=== PATIENT | female | born 1985 | race Caucasian/White ===

== ENCOUNTER 2017-01-15 21:13 | Emergency (ER) | payer MEDICAID ==
[~2017-01-15] VITALS: Wt 75.5 kg
[~2017-01-15 21:13] MED LIST: CEPH-443 PO; IBUP-1542 PO
[2017-01-15 23:35] LABS: URINE BLOOD (Dip) POC Trace-intact (NEGATIVE)
[2017-01-16 00:04] LABS: ADD UMIC YES; UR ASCORBIC ACID NEGATIVE (NEGATIVE); UR BILIRUBIN (Dip) NEGATIVE (NEGATIVE); UR BLOOD (Dip) 1+ mg/dL (NEGATIVE); UR CLARITY CLEAR (CLEAR); UR COLOR YELLOW (YELLOW); UR GLUCOSE (Dip) NEGATIVE (NEGATIVE); UR KETONES (Dip) NEGATIVE (NEGATIVE); UR LEUKOCYTE ESTERASE (Dip) TRACE Leu/ul (NEGATIVE); UR NITRITE (Dip) NEGATIVE (NEGATIVE); UR RBC 0 /HPF (0-5); UR SPECIFIC GRAVITY (Dip) 1.006 (1.003-1.030); UR SQUAMOUS EPITHELIAL CELL FEW /HPF (FEW); UR TOTAL PROTEIN (Dip) NEGATIVE (NEGATIVE); UR UROBILINOGEN (Dip) NEGATIVE (NEGATIVE)
[2017-01-16 00:52] LABS: BASOPHILS % 0.2 % (0.0-2.0); EOSINOPHILS # 0.1 10^3/ul (0.0-0.5); EOSINOPHILS % 0.9 % (0.0-7.0); HEMATOCRIT 38.4 % (37.0-47.0); HEMOGLOBIN 12.8 g/dl (12.0-16.0); LYMPHOCYTES # 2.1 10^3/ul (0.8-2.9); LYMPHOCYTES % 24.6 % (15.0-51.0); MEAN CORPUSCULAR HEMOGLOBIN 30.2 pg (29.0-33.0); MEAN CORPUSCULAR HGB CONC 33.3 g/dl (32.0-37.0); MEAN CORPUSCULAR VOLUME 90.6 fl (82.0-101.0); MEAN PLATELET VOLUME 10.6 fl (7.4-10.4); MONOCYTE # 0.6 10^3/ul (0.3-0.9); MONOCYTES % 6.5 % (0.0-11.0); NEUTROPHILS % 67.4 % (39.0-77.0); PLATELET COUNT 219 10^3/UL (140-415); RED BLOOD COUNT 4.24 10^6/ul (4.20-5.40); RED CELL DISTRIBUTION WIDTH 13.3 % (11.5-14.5); WHITE BLOOD COUNT 8.5 10^3/ul (4.8-10.8)
--- NOTE | 2017-01-16 02:11 | RADRPT ---
PROCEDURE: US OB. CLINICAL INDICATION: , bilateral pelvic pain. TECHNIQUE: Multiple sonographic images of the pelvis were obtained. Transabdominal and transvagin al views of the pelvis are available for review. The images were reviewed on a PACS workstation. COMPARISON: No prior studies are available for comparison. FINDINGS: There is an intrauterine gestational sac, but no pole is identified. The mean gestational sac diameter measures 0.74 cm, corresponding to a 9-suvo-1-day . No subchorionic hemorrhage is identified. The right ovary measures 3.2 x 1.7 x 2.3 cm. The left ovary measures 3.7 x 2.1 x 2.5 cm. Blood flow is demonstrated to both ovaries. The adnexa are unremarkable. There is no free fluid. IMPRESSION: 1. There is a 0-mmuw-7-day intrauterine gestational sac, but no pole is identified. This cou ld simply relate to early dates, and continued follow-up is recommended. RPTAT: HTAR .Zion Hutchison MD, MD Date Time Electronically viewed and signed by .Zion Hutchison MD, on 01/16/2017 02:11 .R/
[2017-01-16] MEDS ORDERED: ACET500C5 PO (02:26)
[2017-01-16] MEDS ORDERED: CEPH-443 PO (02:26)
--- NOTE | 2017-01-16 02:36 | ERD ---
ER Documentation Chief Complaint Date/Time DATE: 01/16/17 TIME: 02:32 Chief Complaint Dysuria and ?? weeks. HPI 31-year-old female patient with no significant past medical history presents to the ED complaining of dysuria for 1 week. States that she could also be . States her last menses was on November 18, 2016. Denies any vaginal bleeding, vaginal discharge. Reports that she does have some bilateral lower pelvic pain. Denies any nausea, vomiting, diarrhea, constipation, melena, hematemesis. States that she is a . ROS All systems reviewed and are negative except as per history of present illness. Medications Home Meds Active Scripts Acetaminophen* (Tylophen*) 500 Mg Capsule, 1 CAP PO Q6H Y for PAIN AND OR ELEVATED TEMP, #20 CAP Prov:MELVIN CASTRO PA-C 01/16/17 Cephalexin* (Keflex*) 500 Mg Capsule, 500 MG PO QID for 7 Days, CAP Prov:MELVIN CASTRO PA-C 01/16/17 Cephalexin* (Keflex*) 500 Mg Capsule, 500 MG PO QID for 10 Days, CAP Prov:JON GAY 09/23/15 Ibuprofen* (Motrin*) 600 Mg Tab, 600 MG PO Q6, #20 TAB Prov:UMER GAYTHIA 09/23/15 Allergies Allergies: Coded Allergies: No Known Allergies (Verified Allergy, Mild, 09/23/15) PMhx/Soc History of Surgery: No Anesthesia Reaction: No Hx Neurological Disorder: No Hx Respiratory Disorders: No Hx Cardiac Disorders: No Hx Psychiatric Problems: No Hx Miscellaneous Medical Probl: Yes (3.5 weeks post : FT, , currently ) Hx Alcohol Use: No Hx Substance Use: No Hx Tobacco Use: No Smoking Status: Never smoker Physical Exam Vitals Vital Signs Date Time Temp Pulse Resp B/P Pulse Ox O2 Delivery O2 Flow Rate FiO2 01/15/17 21:20 98.8 74 20 119/57 100 Physical Exam Const: Yme-uhb-hgidjcdon, well-nourished. In no acute distress. Head: Atraumatic, normocephalic Eyes: Normal Conjunctiva without injection. No purulent discharge. ENT: Normal external ear, nose. Moist oropharynx without tonsillar exudates. Non -erythematous pharynx. Uvula midline. No drooling. No trismus. Neck: No cervical midline tenderness. Full range of motion. No meningismus. No cervical lymphadenopathy. No JVD. Resp: Clear to auscultation bilaterally. No wheezing, rhonchi, rales, or crackles. No accessory muscle use. No retractions. Cardio: Regular rate and rhythm. No murmurs, rubs or gallops. Abd: Soft, slight bilateral lower pelvic tenderness, non distended. Normal bowel sounds. No palpable masses. No rebound tenderness. No guarding. Negative McBurney's point. Negative psoas sign. Negative obturator sign. Skin: No petechiae or rashes Back: No midline tenderness. No CVA tenderness. Ext: No cyanosis, or edema. Neur: Awake and alert. Normal gait. Normal coordination. Psych: Normal Mood and Affect Result Diagram: 01/16/17 0030 Results 24 hrs Laboratory Tests Test 01/15/17 23:35 01/15/17 23:42 01/16/17 00:30 Urine Color YELLOW Urine Clarity CLEAR Urine pH 6.0 Urine Specific [place] 1.006 Urine Ketones NEGATIVEmg/dL Urine Nitrite NEGATIVEmg/dL Urine Bilirubin NEGATIVEmg/dL Urine Urobilinogen NEGATIVEmg/dL Urine Leukocyte Esterase TRACELeu/ul Urine Microscopic RBC 0/HPF Urine Microscopic WBC 11/HPF Urine Squamous Epithelial Cells FEW/HPF Urine Hemoglobin 1+mg/dL Urine Glucose NEGATIVEmg/dL Urine Total Protein NEGATIVEmg/dl Bedside Urine pH (LAB) 6.0 Bedside Urine Protein (LAB) Negative Bedside Urine Glucose (UA) Negative Bedside Urine Ketones (LAB) Negative Bedside Urine Blood Trace-intact Bedside Urine Nitrite (LAB) Negative Bedside Urine Leukocyte Esterase (L Trace White Blood Count 8.510^3/ul Red Blood Count 4.2410^6/ul Hemoglobin 12.8g/dl Hematocrit 38.4% Mean Corpuscular Volume 90.6fl Mean Corpuscular Hemoglobin 30.2pg Mean Corpuscular Hemoglobin Concent 33.3g/dl Red Cell Distribution Width 13.3% Platelet Count 03927^3/UL Mean Platelet Volume 10.6fl Neutrophils % 67.4% Lymphocytes % 24.6% Monocytes % 6.5% Eosinophils % 0.9% Basophils % 0.2% Nucleated Red Blood Cells % 0.0/100WBC Neutrophils # (Manual) 5.710^3/ul Lymphocytes # 2.110^3/ul Monocytes # 0.610^3/ul Eosinophils # 0.110^3/ul Basophils # 0.010^3/ul Nucleated Red Blood Cells # 0.010^3/ul Beta HCG, Quantitative 7099.9mIU/ml Procedures/MDM 31-year-old female patient with no significant past medical history presents the ED complaining of dysuria, and being possibly . Patient is afebrile nontoxic appearing. A urinalysis, urine was ordered to further evaluate patient. Positive urine . An ultrasound, beta-hCG, CBC, type and RH, UA was ordered to evaluate patient. CBC: No evidence of severe infection or anemia Urine: No elevation in nitrites, leukocyte esterase, hematuria. No evidence of UTI Rh: O positive No indication for Rhogam at this time. beta Hc.9 PROCEDURE: US OB. CLINICAL INDICATION: , bilateral pelvic pain. TECHNIQUE: Multiple sonographic images of the pelvis were obtained. Transabdominal and transvaginal views of the pelvis are available for review. The images were reviewed on a PACS workstation. COMPARISON: No prior studies are available for comparison. FINDINGS: There is an intrauterine gestational sac, but no pole is identified. The mean gestational sac diameter measures 0.74 cm, corresponding to a 0-hnwl-4-day . No subchorionic hemorrhage is identified. The right ovary measures 3.2 x 1.7 x 2.3 cm. The left ovary measures 3.7 x 2.1 x 2.5 cm. Blood flow is demonstrated to both ovaries. The adnexa are unremarkable. There is no free fluid. IMPRESSION: 1. There is a 9-opof-9-day intrauterine gestational sac, but no pole is identified. This could simply relate to early dates, and continued follow-up is recommended. Patient will be treated for a urinary tract infection as she has dysuria and trace leukocyte esterase. Patient has a 5 week 2 day intrauterine gestational sac but no pole identified. Low suspicion for symptomatic anemia, ectopic , sepsis, PID, appendicitis, ovarian torsion, tubo-ovarian abscess, surgical abdomen, or other emergent conditions. Patient was educated that there is a risk for threatened . Patient to follow up with [facility] in 2 days for further evaluation and treatment. Patient is to return sooner to the ED for any worsening symptoms. Patient's questions were answered. Patient understood and agreed with discharge plan. Departure Diagnosis: Primary Impression: Dysuria in Trimester: first trimester Qualified Code: O26.891 - Dysuria during in first trimester Additional Impression: Pelvic pain during Condition: Stable Patient Instructions: Urinary Tract Infections in Women, : Your First Trimester Changes, Adapting to : First Trimester Referrals: [facility] YOU HAVE RECEIVED A MEDICAL SCREENING EXAM AND THE RESULTS INDICATE THAT YOU DO NOT HAVE A CONDITION THAT REQUIRES URGENT TREATMENT IN THE EMERGENCY DEPARTMENT. FURTHER EVALUATION AND TREATMENT OF YOUR CONDITION CAN WAIT UNTIL YOU ARE SEEN IN YOUR DOCTORS OFFICE WITHIN THE NEXT 1-2 DAYS. IT IS YOUR RESPONSIBILITY TO MAKE AN APPOINTMENT FOR FOLOW-UP CARE. IF YOU HAVE A PRIMARY DOCTOR --you should call your primary doctor and schedule an appointment IF YOU DO NOT HAVE A PRIMARY DOCTOR YOU CAN CALL OUR PHYSICIAN REFERRAL HOTLINE AT IF YOU CAN NOT AFFORD TO SEE A PHYSICIAN YOU CAN CHOSE FROM THE FOLLOWING [facility] [address] [facility]. [facility] [address] [facility] [place] [facility]. [facility] [address] [facility] [facility] [address] [facility]. [facility] [address] [facility]. [facility]. [address] [facility]. [facility] YOU HAVE RECEIVED A MEDICAL SCREENING EXAM AND THE RESULTS INDICATE THAT YOU DO NOT HAVE A CONDITION THAT REQUIRES URGENT TREATMENT IN THE EMERGENCY DEPARTMENT. FURTHER EVALUATION AND TREATMENT OF YOUR CONDITION CAN WAIT UNTIL YOU ARE SEEN IN YOUR DOCTORS OFFICE WITHIN THE NEXT 1-2 DAYS. IT IS YOUR RESPONSIBILITY TO MAKE AN APPOINTMENT FOR FOLOW-UP CARE. IF YOU HAVE A PRIMARY DOCTOR --you should call your primary doctor and schedule and appointment IF YOU DO NOT HAVE A PRIMARY DOCTOR YOU CAN CALL OUR PHYSICIAN REFERRAL HOTLINE AT . IF YOU CAN NOT AFFORD TO SEE A PHYSICIAN YOU CAN CHOSE FROM THE FOLLOWING [facility] INSTITUTIONS: [facility] [address] [place] [address] [facility] [address] [place] [address] [facility] + [facility] [address] [place] [address] [facility] URGENT CARE/SPECIALTIES Additional Instructions: Llame al doctor JAMES y denny haylee ANSON PARA DENTRO DE 2-3 SPENCER para un referido juan pablo a un obstetra. Dgale a la secretaria que nosotros le instruimos hacer esta anson.Avise o llame si amaya condicin se empeora antes de la anson. Regresa aqui si peor o no mejor. MELVIN CASTRO PA-C Jan 16, 2017 02:36 MELVIN CASTRO PA-C Jan 16, 2017 02:36
[2017-01-16 02:59] VITALS: BP 110/62; PULSE 64; RESP 18
== END 2017-01-16 02:58 | disposition home or self-care (01) ==
LOC: FTE 21:13
DX: O26.891 Other specified pregnancy related conditions, first trimester (principal); R30.0 Dysuria; R10.2 Pelvic and perineal pain; Z3A.01 Less than 8 weeks gestation of pregnancy
CPT/HCPCS: 36415; 76801; 76817; 81001; 84702; 85025; 86900; 86901; Z7502; 81003

== ENCOUNTER 2017-09-02 22:38 | Inpatient (IN) | END 2017-09-05 14:20 | disposition home or self-care (01) | DRG 775 ==